=== PATIENT | male | born 1945 | race Caucasian/White ===

== ENCOUNTER 2018-02-01 02:14 | Inpatient (IN) | payer MEDICARE, OTHER ==
[2018-02-01] MEDS ORDERED: PREDNISONE 20 MG TABLET PO ONE ×2 (02:28→06:15)
[2018-02-01] MEDS ORDERED: IPRATROPIUM/ALBUTEROL 0.5-2.5 MG/3 ML AMPUL NEB ONE (02:28)
[2018-02-01] MEDS ORDERED: ALBUTEROL SULFATE 0.083% NEB 2.5 MG/3 ML AMPUL NEB ONE ×2 (03:09→04:46)
[2018-02-01] MEDS ORDERED: MAGNESIUM SULFATE/D5W 1 GM/100 ML RTUPB IV ONE ×2 (03:11→05:33)
[2018-02-01] MEDS: ALBUTEROL SULFATE 0.083% NEB 2.5 MG/3 ML AMPUL NEB SCH ×2 (03:11→03:39)
--- NOTE | 2018-02-01 03:42 | RADIOLOGY REPORT (SQ) ---
EXAM DESCRIPTION: XR CHEST 1 VIEW COMPLETED DATE/TME: 02/01/2018 02:28 CLINICAL HISTORY: 72 years Male, breathing difficulty COMPARISON: None. NUMBER OF VIEWS/TECHNIQUE: 1/AP FINDINGS: Adequate lung volume, clear parenchyma, normal cardiac silhouette, and intact bony thorax. IMPRESSION: No acute cardiopulmonary findings.
[2018-02-01 03:51] LABS: ABSOLUTE BASOPHILS # (AUTO) 0.1 10^3/uL (0.0-0.2); ABSOLUTE EOSINOPHILS # (AUTO) 0.6 10^3/uL (0.0-0.6); ABSOLUTE LYMPHOCYTES (AUTO) 0.9 10^3/uL (0.5-4.7); ABSOLUTE MONOCYTES (AUTO) 0.9 10^3/uL (0.1-1.4); ABSOLUTE NEUT (AUTO) 8.7 10^3/uL (1.7-8.2); BASOPHILS % (AUTO) 0.6 % (0-2); EOSINOPHILS % (AUTO) 5.6 % (0-6); HEMATOCRIT 45.3 % (37.9-51.0); HEMOGLOBIN 15.3 g/dL (13.5-17.0); LYMPHOCYTES % (AUTO) 8.4 % (13-45); MEAN CORPUSCULAR HEMOGLOBIN 28.1 pg (27.0-33.4); MEAN CORPUSCULAR HGB CONC 33.8 g/dL (32.0-36.0); MEAN CORPUSCULAR VOLUME 83 fl (80-97); MONOCYTES % (AUTO) 7.7 % (3-13); PLATELET COUNT 208 10^3/uL (150-450); RED BLOOD COUNT 5.45 10^6/uL (4.35-5.55); RED CELL DISTRIBUTION WIDTH 14.7 % (11.5-14.0); SEGMENTED NEUTROPHILS % (AUTO) 77.7 % (42-78); TOTAL CELLS COUNTED % (AUTO) 100 %; WHITE BLOOD COUNT 11.2 10^3/uL (4.0-10.5)
[2018-02-01 04:05] LABS: ANION GAP 12 (5-19); BLOOD UREA NITROGEN 15 mg/dL (7-20); CARBON DIOXIDE 25 mmol/L (22-30); CHLORIDE 106 mmol/L (98-107); GLUCOSE 116 mg/dL (75-110); POTASSIUM 4.3 mmol/L (3.6-5.0); SODIUM 142.7 mmol/L (137-145)
[2018-02-01] MEDS ORDERED: AZITHROMYCIN INJ 500 MG VIAL IV ONE (05:01)
[2018-02-01] MEDS ORDERED: CEFTRIAXONE 1 GM/D5W RTU 1 GM/50 ML RTUPB IV ONE (05:31)
--- NOTE | 2018-02-01 05:44 | ER Document Report ---
ED General - General Chief Complaint: Shortness Of Breath Stated Complaint: COUGH Time Seen by Provider: 02/01/18 03:00 TRAVEL OUTSIDE OF THE [place] IN LAST 30 DAYS: No - HPI Patient complains to provider of: Shortness of breath Notes: Patient coming in today for shortness of breath. Patient has a history asthma. Patient states worsening over the last 4-5 days followed up with his physician was given breathing treatments and albuterol however states he was not given any antibiotics. Patient states productive sputum yellow no fevers no chills no recent travel no chest pain. Patient states this normally happens once a year and is cleared up with antibiotics. Patient is tachypneic speaking in approximately 7 word sentences - Related Data Allergies/Adverse Reactions: No Known Allergies Allergy (Unverified 11/20/11 14:49) Past Medical History - Social History Smoking Status: Unknown if Ever Smoked Family History: Reviewed & Not Pertinent Patient has suicidal ideation: No Patient has homicidal ideation: No - Past Medical History Cardiac Medical History: Reports: Hx Hypercholesterolemia, Hx Hypertension Denies: Hx Coronary Artery Disease, Hx Heart Attack Pulmonary Medical History: Denies: Hx Asthma, Hx Bronchitis, Hx COPD, Hx Pneumonia Neurological Medical History: Denies: Hx Cerebrovascular Accident, Hx Seizures Renal/ Medical History: Denies: Hx Peritoneal Dialysis Musculoskeltal Medical History: Denies Hx Arthritis Past Surgical History: Denies: Hx Pacemaker - Immunizations Hx Diphtheria, Pertussis, Tetanus Vaccination: Yes Review of Systems - Review of Systems Constitutional: No symptoms reported EENT: No symptoms reported Cardiovascular: No symptoms reported Respiratory: Cough, Short of breath Gastrointestinal: No symptoms reported Genitourinary: No symptoms reported Male Genitourinary: No symptoms reported Musculoskeletal: No symptoms reported Skin: No symptoms reported Hematologic/Lymphatic: No symptoms reported Neurological/Psychological: No symptoms reported -: Yes All other systems reviewed and negative Physical Exam - Vital signs Vitals: Temp Pulse Resp BP Pulse Ox 98.4 F 96 24 H 162/87 H 93 02/01/18 02:26 02/01/18 02:26 02/01/18 02:26 02/01/18 02:26 02/01/18 02:26 Interpretation: Tachypneic Notes: Pulse ox in triage in the lower 90s 80% with patient moving around placed on 2 L of oxygen - General General appearance: Appears well, Alert - HEENT Head: Normocephalic, Atraumatic Eyes: Normal Pupils: PERRL - Respiratory Respiratory status: Tachypnea Chest status: Nontender Breath sounds: Rhonchi, Wheezing Chest palpation: Normal - Cardiovascular Rhythm: Regular Heart sounds: Normal auscultation Murmur: No - Abdominal Inspection: Normal Distension: No distension Bowel sounds: Normal Tenderness: Nontender Organomegaly: No organomegaly - Back Back: Normal, Nontender - Extremities General upper extremity: Normal inspection, Nontender, Normal color, Normal ROM , Normal temperature General lower extremity: Normal inspection, Nontender, Normal color, Normal ROM , Normal temperature, Normal weight bearing. No: Troy's sign - Neurological Neuro grossly intact: Yes Cognition: Normal Orientation: AAOx4 Cliff Coma Scale Eye Opening: Spontaneous Conway Coma Scale Verbal: Oriented Conway Coma Scale Motor: Obeys Commands Conway Coma Scale Total: 15 Speech: Normal Motor strength normal: LUE, RUE, LLE, RLE Sensory: Normal - Psychological Associated symptoms: Normal affect, Normal mood - Skin Skin Temperature: Warm Skin Moisture: Dry Skin Color: Normal Course - Re-evaluation Re-evalutation: 02/01/18 06:22 Patient with minimal improvement with bronchodilator therapy steroids and magnesium. Chest x-ray did not show any pneumonia laboratory studies not show any significant pathology therefore patient with minimal improvement will be admitted to the hospital service for further evaluation. - Vital Signs Vital signs: Temp Pulse Resp BP Pulse Ox 98.4 F 96 24 H 143/78 H 94 02/01/18 02:26 02/01/18 02:26 02/01/18 02:26 02/01/18 04:01 02/01/18 04:01 - Laboratory Result Diagrams: 02/01/18 03:41 02/01/18 03:41 Laboratory results interpreted by me: 02/01/18 02/01/18 03:41 03:41 WBC 11.2 H RDW 14.7 H Lymphocytes % 8.4 L Absolute Neutrophils 8.7 H Glucose 116 H Discharge - Discharge Clinical Impression: Asthma exacerbation, Bronchitis, Hypoxemia requiring supplemental oxygen Condition: Good Disposition: ADMITTED INPATIENT Admitting Provider: Hospitalist [facility] [place] Unit Admitted: IMCU Referrals: LOCALMD,NO [Primary Care Provider] - Follow up as needed
[2018-02-01] MEDS ORDERED: CHLORPHENIRAMINE MALEATE 4 MG TABLET PO ONE (05:54)
[2018-02-01] MEDS ORDERED: HYDROCODONE BIT/HOMATROPINE SYRUP 5 ML UDCUP PO PRN (05:54)
[2018-02-01] MEDS ORDERED: HYDRALAZINE HCL INJ/PF 20 MG/1 ML SDV IV PRN (05:54)
[2018-02-01] MEDS ORDERED: GUAIFENESIN SYRP 200 MG/10 ML UDC PO PRN (05:56)
[2018-02-01] MEDS ORDERED: ACETAMINOPHEN 325 MG TABLET PO PRN (05:56)
[2018-02-01] MEDS ORDERED: HEPARIN SOD (PORCINE) 5,000 UNIT/ML 1 ML SYRINGE SUBCUT SCH (06:00)
[2018-02-01] MEDS ORDERED: FLUTICASONE NASAL SPRAY 50 MCG/SPRY 120 SPRAY/16 GM NASL ONE (06:15)
[2018-02-01] MEDS ORDERED: METHYLPREDNISOLONE INJ 125 MG/2 ML SDV ONE (06:25)
[2018-02-01] MEDS ORDERED: METHYLPREDNISOLONE INJ 125 MG/2 ML SDV IV ONE (06:27)
--- NOTE | 2018-02-01 06:43 | PDOC H&P ---
History of Present Illness Admission Date/PCP: 02/01/18 06:30 NO LOCALMD Patient complains of: Shortness of breath History of Present Illness: RYAN PLATA is a 72 year old male with a past medical history of atrial fibrillation on anticoagulation and asthma. Patient presents after 1 week of exacerbation of asthma not improved following treatment of acute bronchitis with azithromycin. He denies chest pain, palpitations, fever chills nausea or vomiting. He admits worsening after exposure to hot and humid air a known trigger for his asthma. He also admits rhinorrhea and mild sore throat but denies acid reflux. In the emergency room is found to be hypoxic of 88 on room air, global wheeze and a peak flow of only 175. He receives multiple albuterol treatments and Solu-Medrol with minimal improvement referred to the hospitalist for admission. He denies previous intubation Past Medical History Cardiac Medical History: Reports: Atrial Fibrillation, Hyperlipidema, Hypertension Denies: Coronary Artery Disease, Myocardial Infarction Pulmonary Medical History: Denies: Asthma, Bronchitis, Chronic Obstructive Pulmonary Disease (COPD), Pneumonia Neurological Medical History: Denies: Seizures Musculoskeltal Medical History: Denies: Arthritis Hematology: Denies: Anemia Past Surgical History Past Surgical History: Denies: Pacemaker Social History Information Source: Patient Lives with: Spouse/Significant other Smoking Status: Unknown if Ever Smoked Drugs: None - Advance Directive Resuscitation Status: Full Code Family History Family History: Hypertension Parental Family History Reviewed: Yes Children Family History Reviewed: Yes Sibling(s) Family History Reviewed.: Yes Medication/Allergy Home Medications: Lisinopril/Hydrochlorothiazide [Zestoretic 10-12.5 mg Tablet] 10 mg PO DAILY 06/23 Simvastatin [Zocor 40 mg Tablet] 40 mg PO DAILY 11/21/11 Allergies/Adverse Reactions: No Known Allergies Allergy (Unverified 11/20/11 14:49) Review of Systems Constitutional: ABSENT: chills, fever(s), headache(s), weight gain, weight loss Eyes: ABSENT: visual disturbances Ears: ABSENT: hearing changes Cardiovascular: ABSENT: chest pain, dyspnea on exertion, edema, orthropnea, palpitations Respiratory: ABSENT: cough, hemoptysis Gastrointestinal: ABSENT: abdominal pain, constipation, diarrhea, hematemesis, hematochezia, nausea, vomiting Genitourinary: ABSENT: dysuria, hematuria Musculoskeletal: ABSENT: joint swelling Integumentary: ABSENT: rash, wounds Neurological: ABSENT: abnormal gait, abnormal speech, confusion, dizziness, focal weakness, syncope Psychiatric: ABSENT: anxiety, depression, homidical ideation, suicidal ideation Endocrine: ABSENT: cold intolerance, heat intolerance, polydipsia, polyuria Hematologic/Lymphatic: ABSENT: easy bleeding, easy bruising Physical Exam Vital Signs: Temp Pulse Resp BP Pulse Ox 98.4 F 96 24 H 143/90 H 96 02/01/18 02:26 02/01/18 02:26 02/01/18 02:26 02/01/18 05:01 02/01/18 06:00 General appearance: PRESENT: cooperative, severe distress. ABSENT: no acute distress, obese Head exam: PRESENT: atraumatic, normocephalic Eye exam: PRESENT: conjunctiva pink, EOMI, PERRLA. ABSENT: scleral icterus Ear exam: PRESENT: normal external ear exam Mouth exam: PRESENT: moist, tongue midline Neck exam: ABSENT: carotid bruit, JVD, lymphadenopathy, thyromegaly Respiratory exam: PRESENT: accessory muscle use, prolonged expiratory phas, rales, retraction, symmetrical, tachypnea, wheezes. ABSENT: rhonchi, stridor Cardiovascular exam: PRESENT: RRR Pulses: PRESENT: normal dorsalis pedis pul Vascular exam: PRESENT: normal capillary refill GI/Abdominal exam: PRESENT: normal bowel sounds, soft. ABSENT: distended, guarding, mass, organolmegaly, rebound, tenderness Rectal exam: PRESENT: deferred Extremities exam: PRESENT: full ROM. ABSENT: calf tenderness, clubbing, pedal edema Neurological exam: PRESENT: alert, awake, oriented to person, oriented to place , oriented to time, oriented to situation, CN II-XII grossly intact. ABSENT: motor sensory deficit Psychiatric exam: PRESENT: appropriate affect, normal mood. ABSENT: homicidal ideation, suicidal ideation Skin exam: PRESENT: dry, intact, warm. ABSENT: cyanosis, rash Results Impressions: Chest X-Ray 02/01/18 02:28 IMPRESSION: No acute cardiopulmonary findings. Assessment & Plan - Diagnosis (1) Asthma exacerbation Is this a current diagnosis for this admission?: Yes Plan: Following exposure to known trigger. Peak flow of only 175. Solu-Medrol, albuterol, Flonase, chlorpheniramine, supplemental oxygen (2) Bronchitis Is this a current diagnosis for this admission?: Yes Plan: Empiric antibiotics as increased severity would likely require intubation., (3) A-fib Is this a current diagnosis for this admission?: Yes Plan: Appears paroxysmal, continue outpatient rate limiting med unless beta-mauricio I will convert to calcium channel mauricio during his acute exacerbation of bronchospasm. Possible contributing factor will evaluate proBNP and continue telemetry monitoring (4) Hypoxemia requiring supplemental oxygen Is this a current diagnosis for this admission?: Yes Plan: Secondary to #1 - Time Time Spent: 50 to 70 Minutes - Inpatient Certification Medical Necessity: Need Close Monitoring Due to Risk of Patient Decompensation
[2018-02-01] MEDS: IPRATROPIUM/ALBUTEROL 0.5-2.5 MG/3 ML AMPUL NEB PRN ×2 (07:28→10:15)
[2018-02-01] MEDS: IPRATROPIUM/ALBUTEROL 0.5-2.5 MG/3 ML AMPUL NEB SCH ×3 (08:50→20:12)
--- NOTE | 2018-02-01 10:02 | EKG REPORT ---
SEVERITY:- ABNORMAL ECG - SINUS RHYTHM VENTRICULAR PREMATURE COMPLEX LEFT ANTERIOR FASCICULAR BLOCK PROBABLE LEFT VENTRICULAR HYPERTROPHY : Confirmed by: Melissa Beverly 01-Feb-2018 10:02:14
[2018-02-01] MEDS ORDERED: IPRATROPIUM/ALBUTEROL 0.5-2.5 MG/3 ML AMPUL NEB SCH (14:00)
[2018-02-01] MEDS ORDERED: METOPROLOL TARTRATE PF/INJ 5 MG/5 ML SDV IV PRN (16:41)
--- NOTE | 2018-02-01 16:53 | Progress Note ---
Provider Note Provider Note: Patient seen and examined on rounds this morning. Please see full assessment and plan on HPI this morning. Patient states he is feeling much better since he came in. Patient was using his nebulizer treatment I went to see him. At this time he had already received azithromycin and Rocephin IV antibiotics in the ED. I will stop his Rocephin and continue the azithromycin. He also received 1 dose of Solu-Medrol 125 mg IV today. I will start him on Solu-Medrol 60 mg q. 8 from tomorrow. We can titrate down to p.o. prednisone on day of discharge. At this time we will start with aggressive bronchial hygiene, PEP therapy, DuoNeb every 6 hours and albuterol every 2 hours as needed. We will also provide with incentive spirometry and start his home dose of Symbicort. Since he is having productive sputum we will get a sputum culture. Patient is already asking when he can go home and wondering if he can go home tomorrow night. I told him that we will see how he is doing tonight and tomorrow and reevaluate his status.
[2018-02-01] MEDS ORDERED: PREDNISONE 20 MG TABLET PO SCH (18:00)
[2018-02-01] MEDS: ALBUTEROL SULFATE 0.083% NEB 2.5 MG/3 ML AMPUL NEB PRN (18:07)
[2018-02-01] MEDS: FLUTICASONE NASAL SPRAY 50 MCG/SPRY 120 SPRAY/16 GM NASL SCH (22:00)
[2018-02-01] MEDS: BUDESONIDE/FORMOTEROL 160-4.5 MCG 60 PUFF/6 GM MDI IH SCH (22:00)
[2018-02-01] MEDS: RIVAROXABAN 10 MG TABLET PO SCH (22:01)
[2018-02-01] MEDS: METOPROLOL TARTRATE 25 MG TABLET PO SCH (22:01)
[2018-02-02] MEDS: IPRATROPIUM/ALBUTEROL 0.5-2.5 MG/3 ML AMPUL NEB PRN (00:24)
[2018-02-02] MEDS: IPRATROPIUM/ALBUTEROL 0.5-2.5 MG/3 ML AMPUL NEB SCH ×4 (04:05→20:25)
[2018-02-02 05:20] LABS: HEMATOCRIT 41.1 % (37.9-51.0); HEMOGLOBIN 13.9 g/dL (13.5-17.0); MEAN CORPUSCULAR HEMOGLOBIN 27.9 pg (27.0-33.4); MEAN CORPUSCULAR HGB CONC 33.9 g/dL (32.0-36.0); MEAN CORPUSCULAR VOLUME 82 fl (80-97); PLATELET COUNT 235 10^3/uL (150-450); RED BLOOD COUNT 4.98 10^6/uL (4.35-5.55); RED CELL DISTRIBUTION WIDTH 14.6 % (11.5-14.0); WHITE BLOOD COUNT 15.8 10^3/uL (4.0-10.5)
[2018-02-02 06:21] LABS: ANION GAP 11 (5-19); BLOOD UREA NITROGEN 27 mg/dL (7-20); CALCIUM 9.5 mg/dL (8.4-10.2); CARBON DIOXIDE 28 mmol/L (22-30); CHLORIDE 103 mmol/L (98-107); GLUCOSE 127 mg/dL (75-110); POTASSIUM 5.1 mmol/L (3.6-5.0); SODIUM 141.7 mmol/L (137-145)
[2018-02-02] MEDS: METHYLPREDNISOLONE INJ 125 MG/2 ML SDV IV SCH ×2 (06:44→13:23)
[2018-02-02] MEDS: ALBUTEROL SULFATE 0.083% NEB 2.5 MG/3 ML AMPUL NEB PRN (06:47)
[2018-02-02 07:23] LABS: ABSOLUTE LYMPHOCYTES# (MANUAL) 0.2 10^3/uL (0.5-4.7); ABSOLUTE MONOCYTES # (MANUAL) 1.6 10^3/uL (0.1-1.4); ABSOLUTE NEUTROPHILS# (MANUAL) 14.1 10^3/uL (1.7-8.2); BASOPHILS % (MANUAL) 0 % (0-2); EOSINOPHILS % (MANUAL) 0 % (0-6); LYMPHOCYTES % (MANUAL) 1 % (13-45); MONOCYTES % (MANUAL) 10 % (3-13); SEGMENTED NEUTROPHILS % (MAN) 89 % (42-78); TOTAL CELLS COUNTED 100
[2018-02-02 07:24] LABS: PLATELET COMMENT ADEQUATE; RBC MORPHOLOGY COMMENT NORMO-CYTIC/CHROMIC
[2018-02-02] MEDS: AZITHROMYCIN 500 MG in DEXTROSE 5%-WATER 250 ML IV SCH (07:55)
[2018-02-02] MEDS ORDERED: CEFTRIAXONE 1 GM/D5W RTU 1 GM/50 ML RTUPB IV SCH (08:00)
[2018-02-02] MEDS: FLUTICASONE NASAL SPRAY 50 MCG/SPRY 120 SPRAY/16 GM NASL SCH ×2 (09:46→22:39)
[2018-02-02] MEDS: METOPROLOL TARTRATE 25 MG TABLET PO SCH ×2 (09:48→22:27)
[2018-02-02] MEDS: BUDESONIDE/FORMOTEROL 160-4.5 MCG 60 PUFF/6 GM MDI IH SCH ×2 (09:48→22:26)
--- NOTE | 2018-02-02 16:20 | PDOC PROGRESS REPORT ---
Subjective Progress Note for:: 02/02/18 - seen during morning rounds Subjective:: states he feels much better than yesterday. although he didnt get his eggs this morning and hence didnt eat his breakfast Reason For Visit: COPD EXACERBATION PNEUMONIA Physical Exam Vital Signs: Temp Pulse Resp BP Pulse Ox 97.3 F 76 18 147/86 H 95 02/02/18 15:13 02/02/18 15:13 02/02/18 15:13 02/02/18 15:13 02/02/18 16:06 Intake & Output 02/01/18 02/02/18 02/03/18 06:59 06:59 06:59 Intake Total 1536 237 Balance 1536 237 Weight 156 lb 11.979 oz General appearance: PRESENT: no acute distress, cooperative Head exam: PRESENT: atraumatic, normocephalic Eye exam: PRESENT: EOMI. ABSENT: scleral icterus Ear exam: PRESENT: normal external ear exam Mouth exam: PRESENT: neck supple, tongue midline Neck exam: ABSENT: tracheal deviation Respiratory exam: PRESENT: decreased breath sounds, symmetrical, wheezes, other - decreased BS at the bases with scattered exipratory wheezing in bilateral lung guardado Cardiovascular exam: PRESENT: +S1, +S2 Pulses: PRESENT: +2 pedal pulses bilateral GI/Abdominal exam: PRESENT: soft. ABSENT: tenderness Extremities exam: ABSENT: joint swelling, pedal edema, tenderness Musculoskeletal exam: PRESENT: full ROM Neurological exam: PRESENT: alert, awake, CN II-XII grossly intact Skin exam: PRESENT: dry, warm Results Laboratory Results: 02/02/18 04:54 02/02/18 04:54 02/02/18 02/02/18 04:54 04:54 WBC 15.8 H RBC 4.98 Hgb 13.9 Hct 41.1 MCV 82 MCH 27.9 MCHC 33.9 RDW 14.6 H Plt Count 235 Seg Neutrophils % Not Reportable Lymphocytes % Not Reportable Monocytes % Not Reportable Eosinophils % Not Reportable Basophils % Not Reportable Absolute Neutrophils Not Reportable Absolute Lymphocytes Not Reportable Absolute Monocytes Not Reportable Absolute Eosinophils Not Reportable Absolute Basophils Not Reportable Sodium 141.7 Potassium 5.1 H Chloride 103 Carbon Dioxide 28 Anion Gap 11 BUN 27 H Creatinine 1.30 H Est GFR ( Amer) > 60 Est GFR (Non-Af Amer) 54 L Glucose 127 H Calcium 9.5 Impressions: Chest X-Ray 02/01/18 02:28 IMPRESSION: No acute cardiopulmonary findings. Assessment & Plan - Diagnosis (1) Asthma exacerbation Qualifiers: Asthma severity: unspecified severity Asthma persistence: intermittent Qualified Code(s): J45.21 - Mild intermittent asthma with (acute) exacerbation Is this a current diagnosis for this admission?: Yes Plan: Started back on his Symbicort, started on duoneb Q6h and prn albuterol. also added azithromycin for exacerbation (2) Hypoxemia requiring supplemental oxygen Is this a current diagnosis for this admission?: Yes Plan: likely 2/2 asthma exac- see plan above (3) A-fib Is this a current diagnosis for this admission?: Yes Plan: c/w metoprolol and xarelto- not in afib now - Plan Summary Plan Summary: likely d/c in AM if he continues to improve
[2018-02-02] MEDS: RIVAROXABAN 10 MG TABLET PO SCH (22:26)
[2018-02-03] MEDS: IPRATROPIUM/ALBUTEROL 0.5-2.5 MG/3 ML AMPUL NEB SCH ×2 (01:53→08:27)
[2018-02-03] MEDS: BUDESONIDE/FORMOTEROL 160-4.5 MCG 60 PUFF/6 GM MDI IH SCH (09:03)
[2018-02-03] MEDS: AZITHROMYCIN 500 MG in DEXTROSE 5%-WATER 250 ML IV SCH (09:04)
[2018-02-03] MEDS: METOPROLOL TARTRATE 25 MG TABLET PO SCH (09:13)
[2018-02-03] MEDS: FLUTICASONE NASAL SPRAY 50 MCG/SPRY 120 SPRAY/16 GM NASL SCH (09:14)
[2018-02-03] MEDS ORDERED: PREDNISONE 20 MG TABLET PO SCH (10:00)
[2018-02-03 10:45] VITALS: BP 154/87
--- NOTE | 2018-02-03 12:52 | PDOC DISCHARGE SUMMARY ---
General - Admit/Disc Date/PCP Admission Date/Primary Care Provider: 02/01/18 06:30 NO LOCALMD Discharge Date: 02/03/18 - Discharge early this morning. - Discharge Diagnosis (1) Asthma exacerbation Is this a current diagnosis for this admission?: Yes (2) Hypoxemia requiring supplemental oxygen Is this a current diagnosis for this admission?: Yes (3) A-fib Is this a current diagnosis for this admission?: Yes - Additional Information Resuscitation Status: Full Code Discharge Diet: As Tolerated Discharge Activity: Activity As Tolerated Prescriptions: Azithromycin 250 mg PO DAILY #3 tablet Prednisone [Deltasone 20 mg Tablet] See Protocol PO DAILY #12 tablet Home Medications: Budesonide/Formoterol Fumarate [Symbicort 160-4.5 Mcg Inhaler] 2 puff IH BID Ipratropium/Albuterol Sulfate [Duoneb 3 ml Ampul] 3 ml NEB RTQ6 02/01/18 Metoprolol Tartrate [Lopressor 25 mg Tablet] 25 mg PO Q12 02/01/18 Rivaroxaban [Xarelto] 20 mg PO QHS 02/01/18 Acetaminophen [Tylenol 325 mg Tablet] 650 mg PO Q4HP PRN tablet 02/03/18 Azithromycin 250 mg PO DAILY #3 tablet 02/03/18 Fluticasone Propionate [Flonase Nasal [place] 50 Mcg/[place] 16 gm] 2 spray NASL Q12 spray.pump 02/03/18 Prednisone [Deltasone 20 mg Tablet] See Protocol PO DAILY #12 tablet 02/03/18 History of Present Illness History of Present Illness: RYAN PLATA is a 72 year old male who was admitted to the hospital for acute asthma exacerbation. Please see initial H&P for full details Hospital Course Hospital Course: I had the pleasure of taking care of this patient during his acute illness. We started him on bronchial hygiene, Pap therapy and DuoNeb for his shortness of breath. He was also started on IV antibiotics and continue on azithromycin next day. After 2 days of aggressive therapy he had improved significantly and was requesting discharge today. I talked to him about possibly another 24 hours of therapy but he states that he will go home to continue therapy on his own. At this time we will discharge him on IV azithromycin and a prednisone taper. He is aware of his asthma exacerbation and signs and symptoms when to call his primary care doctor. I advised him to follow-up with his PCP in 1 week and possibly testing consultant if needed. I had a long discussion with him about how to avoid exacerbations in the future. Physical Exam Vital Signs: Temp Pulse Resp BP Pulse Ox 97.6 F 71 18 140/77 H 97 02/03/18 08:42 02/03/18 08:42 02/03/18 08:42 02/03/18 08:42 02/03/18 08:42 Intake & Output 02/02/18 02/03/18 02/04/18 06:59 06:59 06:59 Intake Total 1536 2025 Balance 1532025 Weight 156 lb 11.979 oz 159 lb 2.78 oz General appearance: PRESENT: no acute distress, cooperative Head exam: PRESENT: atraumatic, normocephalic Eye exam: PRESENT: EOMI. ABSENT: scleral icterus Ear exam: PRESENT: normal external ear exam Mouth exam: PRESENT: moist, neck supple Neck exam: ABSENT: tenderness, tracheal deviation Respiratory exam: PRESENT: decreased breath sounds - Mostly at the bases with occasional expiratory wheezes, symmetrical, wheezes Cardiovascular exam: PRESENT: +S1, +S2 Pulses: PRESENT: +2 pedal pulses bilateral GI/Abdominal exam: PRESENT: normal bowel sounds, soft. ABSENT: tenderness Extremities exam: ABSENT: joint swelling, pedal edema Musculoskeletal exam: PRESENT: full ROM. ABSENT: tenderness Skin exam: PRESENT: dry, warm Results Laboratory Results: 02/02/18 04:54 02/02/18 04:54 Impressions: Chest X-Ray 02/01/18 02:28 IMPRESSION: No acute cardiopulmonary findings. Qualifiers - * PATIENT BEING DISCHARGED WITH ANY OF THE FOLLOWING DIAGNOSIS: No VTE patient discharged on overlapping Therapy?: No Plan Discharge Plan: Continue with antibiotics for another few days. Continue with prednisone taper as discussed and directed. Follow-up with the PCP within 1 week. Time Spent: Less than 30 Minutes
== END 2018-02-03 13:12 | disposition home or self-care (01) | DRG 203 ==
LOC: ER 02:14 → EH 06:30 → 3S 09:05
PROVIDERS: ADMIT Internal Medicine; ATTEND Internal Medicine
DX: J45.21 Mild intermittent asthma with (acute) exacerbation (principal); I48.91 Unspecified atrial fibrillation; R09.02 Hypoxemia; I10 Essential (primary) hypertension; E78.00 Pure hypercholesterolemia, unspecified; Z79.01 Long term (current) use of anticoagulants
CPT/HCPCS: 36415; 71045; 80048; 83880; 84484; 85025; 87040; 87070; 87205; 93005; 93010; 94640; 94667; 94668; 94799; 96365; 96366; 96367; 99285; J0456; J0696; J2930; J3475; J3490; J7060; J7512; J7620